=== PATIENT | male | born 1990 | race African-American/Black ===

== ENCOUNTER 2025-01-17 11:38 | Emergency (ER) | payer SELFPAY ==
[2025-01-17 12:26] LABS: #Basophils 0.1 thou/uL (0.0-0.2); #Eosinophils 0.0 thou/uL (0.0-0.7); #Lymphocytes 1.3 thou/uL (1.20-3.40); #Monocytes 0.7 thou/uL (0.11-0.59); #Neutrophils 11.8 thou/uL (1.40-6.50); %Basophils 0.6 % (0.0-1.0); %Eosinophils 0.2 % (0.0-10.0); %Lymphocytes 9.0 % (21.0-51.0); %Monocytes 5.3 % (0.0-10.0); %Neutrophils 85.0 % (42.0-75.0); Hematocrit 43.6 % (42.0-52.0); Hemoglobin 15.0 g/dL (14.0-18.0); Mean Corpuscular Hemoglobin 27.5 pg (27.0-31.0); Mean Corpuscular Volume 80.1 fl (78.0-98.0); Platelet Count 360 10x3/uL (130-400); Red Blood Cell (RBC) Count 5.44 mill/uL (4.70-6.10); White Blood Cell (WBC) Count 13.9 10x3/uL (4.8-10.8)
[2025-01-17 13:59] LABS: ALT (SGPT) 34 U/L (Less than 45); AST (SGOT) 48 U/L (11-34); Albumin 3.8 g/dL (3.1-4.5); Alkaline Phosphatase 80 U/L (40-110); Anion Gap 17 mmol/L (10-20); BUN (Urea Nitrogen) 14 mg/dL (8.9-20.6); Bilirubin, Total 0.7 mg/dL (0.3-1.2); CK (CPK) 629 U/L (30-200); Calc. Creatinine Clearance 0 mL/min (70-130); Calcium 9.4 mg/dL (7.8-10.44); Carbon Dioxide 26 mmol/L (22-29); Chloride 96 mmol/L (98-107); Globulin 4.2 g/dL (2.4-3.5); Glucose 107 mg/dL (70-105); Potassium 3.1 mmol/L (3.5-5.1); Sodium 136 mmol/L (136-145)
[2025-01-17] MEDS ORDERED: Sulfameth/Trimethoprim DS 800-160mg TAB ONE (14:08)
== END 2025-01-17 14:20 ==
LOC: NAV ERS 11:38
DX: S61.215A Laceration without foreign body of left ring finger without damage to nail, initial encounter (principal); L03.114 Cellulitis of left upper limb; E86.0 Dehydration; X58.XXXA Exposure to other specified factors, initial encounter
CPT/HCPCS: 80053; 82550; 85025; 99285; J7030